=== PATIENT | female | born 1990 | race Asian ===

== ENCOUNTER 2019-10-05 15:09 | Emergency (ER) | payer SELFPAY ==
[~2019-10-05] VITALS: Ht 162.6 cm; Wt 67.1 kg
[2019-10-05 15:19] VITALS: Ht 162.6 cm; Wt 67.1 kg
[2019-10-05 15:50] VITALS: BP 132/80
== END 2019-10-05 15:50 | disposition home or self-care (01) ==
LOC: ED 15:09
DX: R05 Cough (principal)